=== PATIENT | male | born 1970 | race African-American/Black ===

== ENCOUNTER 2021-09-09 08:49 | Emergency (ER) | payer OTHER ==
[2021-09-09 09:07] VITALS: BP 131/77; PULSE 60; TEMP 97.5; BMI 25.1
[2021-09-09] MEDS ORDERED: ACETAMINOPHEN 325 MG TABLET (FP) PO ONE (10:21)
[2021-09-09] MEDS ORDERED: IBUPROFEN 600 MG TABLET (FP) PO ONE ×2 (10:21→10:40)
[2021-09-09] MEDS ORDERED: BACITRACIN 15 GM TUBE TOPICAL OINTMENT TP ONE (10:22)
[2021-09-09] MEDS ORDERED: ACETAMINOPHEN 325 MG TABLET (FP) ONE (10:40)
== END 2021-09-09 10:44 | disposition home or self-care (01) ==
LOC: JERFT 08:49
DX: S69.92XA Unspecified injury of left wrist, hand and finger(s), initial encounter (principal); W20.8XXA Other cause of strike by thrown, projected or falling object, initial encounter
CPT/HCPCS: 73140-TC-LT-FY; 99283-25